=== PATIENT | female | born 1980 | race Caucasian/White ===

== ENCOUNTER 2021-12-05 15:14 | Emergency (ER) | payer OTHER, SELFPAY ==
[2021-12-05 15:23] VITALS: BP 111/68; PULSE 71; RESP 16; TEMP 36.3; O2SAT 99
--- NOTE | 2021-12-05 16:05 | ED.URI ---
HPI - URI/Sore Throat General Chief Complaint: Upper Respiratory Infection Stated Complaint: sore throat/fever History of Present Illness HPI Narrative: This is a 41-year-old female presents to urgent care complaining of a sore throat and some congestion that she has had since Friday. Patient was tested for COVID her test results are pending. Patient states that she has had a fever and not feeling very well Related Data Home Medications Medication Instructions Recorded Confirmed No Home Medications 12/05/21 12/05/21 Allergies Allergy/AdvReac Type Severity Reaction Status Date / Time Penicillins Allergy Unknown Verified 12/05/21 15:39 Review of Systems Review of Systems: Sore throat, congestion, fever All systems reviewed & are unremarkable except as noted in HPI and below PMFSH Comments At time as signature, I have reviewed and agree with nursing past medical, social, surgical and family history. Please see nursing chart for further information. There is no relevant family history pertinent to the presenting complaint. Exam Narrative: GENERAL:Well-appearing, well-nourished, and in no acute distress. HEAD:Normocephalic. EYES: PERRLA ENT: Nares clear, moderate rhinorrhea Mucous membranes moist. Pharyngeal erythema with copious clear secretions noted NECK: Supple. CHEST: Clear to auscultation. No respiratory distress. HEART: Regular rate and rhythm.. ABDOMEN: Soft, nontender, normal active bowel sounds. EXTREMITIES: Normal range of motion. No edema. SKIN: Warm, dry, no rash. NEURO: No focal deficits. Alert and oriented x3. Course Course Level of Care: Express Care Visit Vital Signs Vital signs: Vital Signs Temperature 97.4 F L 12/05/21 15:23 Pulse Rate 71 12/05/21 15:23 Respiratory Rate 16 12/05/21 15:23 Blood Pressure 111/68 12/05/21 15:23 Pulse Oximetry 99 12/05/21 15:23 Temperature 97.4 F L 12/05/21 15:23 Pulse Rate 71 12/05/21 15:23 Respiratory Rate 16 12/05/21 15:23 Blood Pressure 111/68 12/05/21 15:23 Pulse Oximetry 99 12/05/21 15:23 MDM - URI/Sore Throat MDM Narrative Medical decision making narrative: negative strep test Refused Influenza test Pending else pretty COVID Differential Diagnosis Differential diagnosis: Likely upper respiratory infection, otitis media, sinusitis, viral infection, bronchitis and pharyngitis Lab Data Labs: Strep Screen Presumptive Negative *(Reference Range: Negative)* Discharge Plan Discharge Clinical Impression: Pharyngitis Qualifiers: Pharyngitis/tonsillitis etiology: unspecified etiology Qualified Code(s): J02.9 - Acute pharyngitis, unspecified Patient Disposition: Home, Self-Care Condition: Stable Instructions: Antibiotic Form, Pharyngitis (ED) Additional Instructions: Your strep test today was negative. A throat culture will be sent to the laboratory for further testing. IF the test is positive, you will receive a phone call within 48 hours and an appropriate antibiotic will be initiated at that time. You will not receive a phone call if the test is negative. Until the throat culture proves otherwise, you should proceed with treating this is as a viral pharyngitis. Salt water gargles may alleviate some of your throat discomfort. Take Tylenol and/or ibuprofen per the package instructions for pain/fever. Go to the ER if your symptoms become worse of if ANY new symptoms develop salt water gargles and/or may use topical anesthetic (eg. Chloraseptic spray) Take tylenol and ibuprofen as needed for pain and fever as directed. Throw away the toothbrush after 24hours of antibiotic. Follow up with primary care provider in 2-3 days if condition is not improving or seek ER visit if your child starts breathing fast/has trouble breathing, is not drinking enough fluids, will not wake up or will not interact with you. Prescriptions: No Action No
== END 2021-12-05 16:17 | disposition home or self-care (01) ==
PROVIDERS: Emergency Provider Nurse Practitioner Family
DX: J02.9 Acute pharyngitis, unspecified (principal)
CPT/HCPCS: 87081; 87880; 99213; G0463